=== PATIENT | male | born 1990 | race Caucasian/White ===

== ENCOUNTER 2021-02-25 22:46 | Emergency (ER) | payer OTHER, SELFPAY ==
[2021-02-25 23:22] LABS: COVID-19 Test Negative (Negative)
[2021-02-25 23:42] VITALS: BP 123/76; PULSE 60; RESP 16; TEMP 36.6; O2SAT 100; BMI 28.8
[2021-02-26 00:04] LABS: Strep A Nucleic Acid Negative (Negative)
--- NOTE | 2021-02-26 00:18 | ED.GENADULT ---
HPI - General Adult General Chief complaint: General Medical Stated complaint: congestion, throat pain Time Seen by Provider: 02/25/21 23:46 Source: patient Mode of arrival: ambulatory Limitations: language barrier History of Present Illness HPI narrative: 30-year-old male presents with upper respiratory symptoms for 3 days presents with right-sided ear pain, difficulty swelling because of sore throat and headache. Onset (ago): day(s) (3) Location: head Severity: mild Severity scale (1-10): 4 Quality: burning and aching Pain Consistency: constant Relieving factors: none Exacerbating factors: eating Associated symptoms: denies other symptoms Treatments prior to arrival: none Related Data Allergies Allergy/AdvReac Type Severity Reaction Status Date / Time No Known Allergies Allergy Verified 02/25/21 23:42 Review of Systems Review of Systems: Constitutional: No Fever, No Chills ENT/Mouth: Positive Ear Pain, No Hoarseness, positive sore throat Eyes: No Eye Pain, No Swelling, No Redness, No Foreign Body Cardiovascular: No Chest Pain, No SOB Respiratory: No Cough, No Dyspnea Gastrointestinal: No Nausea, No Vomiting, No Diarrhea, No abdominal Pain Genitourinary: No Dysuria, No Hematuria Musculoskeletal: positive joint pain, No Myalgias, No Joint Swelling Skin: No Skin lacerations, No rash Neuro: No Weakness, No Numbness, No Paresthesias, No Loss of Consciousness, No Dizziness, No Headache Psych: No Anxiety/Panic, No Depression Heme/Lymph: no easy bruising, no Lymphadenopathy Endocrine: No Polyuria, No Polydipsia Yes all other systems are reviewed and are negative [facility] Past Medical History Attestation statement: The following information was validated with the patient. Source: old records reviewed Medical History Asthma Social History Social History Advance Directives: No Physical Exam Vital Signs: Vital Signs: Last Vital Signs Temp 98 F 02/25/21 23:42 Pulse 60 02/25/21 23:42 Resp 16 02/25/21 23:42 BP 123/76 02/25/21 23:42 Pulse Ox 100 02/25/21 23:42 Body Mass Index 28.8 Appearance: Alert. Oriented X3. Mild distress. Eyes: Pupils equal, round and reactive to light. Sclera nonicteric. ENT: Pharynx and tonsils erythematous without swelling or purulent exudates. No tracheal stridor. Neck: Normal inspection. Neck supple. No cervical lymphadenopathy. CVS: Normal heart rate and rhythm. Pulses normal. Respiratory: No respiratory distress. Breath sounds normal. Abdomen: Soft and nontender. Skin: Skin warm and dry. Normal skin color. Normal skin turgor. Extremities: No lower extremity edema. Gait well balanced well coordinated. Neuro: No motor deficit. No sensory deficit. Cranial nerves 2 through 12 intact. Course Course Course Narrative: 30-year-old male presents with upper respiratory symptoms. Physical exam is unremarkable, Centor scale 1, COVID test is negative. strep test negative. Plan of care to discharge with supportive measures. Patient is afebrile and appears nontoxic. Vital signs are stable and within normal limits. Neurovascularly intact. Able to manage secretions and swallow without difficulty. Patient verbalized understanding of and agrees plan of care discharge home. emt paramedic utilized for all correspondence. Google translate utilized for discharge instructions. Medical Decision Making Differential Diagnosis Differential Diagnosis: Viral syndrome, pharyngitis, otitis media Medical Records Medical records reviewed: Yes I reviewed the patient's medical records. Lab Data Lab results reviewed: Yes I reviewed the patient's lab results. Labs: Lab Results 02/25/21 02/25/21 Range/Units 23:03 23:49 COVID-19 (LUCI) Negative (Negative) COVID-19 Clin Com See Note S. pyogenes GrpA SHAMIKA Negative (Negative) Discharge Plan Discharge Clinical Impression: Acute viral syndrome, Acute viral pharyngitis Patient Disposition: Home, Self-Care Instructions: Viral Syndrome (ED) Additional Instructions: Se le evalu? por s?ntomas de las v?as respiratorias superiores consistentes con brian enfermedad viral. Heller prueba de COVID y estreptococos son negativas. Utilice Tylenol y Motrin seg?n sea necesario para controlar el dolor. Beber mucho l?quido. Descansar. Jasbir por elegir margoth departamento de emergencias para heller evaluaci?n. Intza un seguimiento con heller m?dico de atenci?n primaria seg?n sea necesario. Regrese al departamento de emergencias por cualquier s?ntoma nuevo, preocupante o que empeore. You were evaluated for upper respiratory symptoms consistent with a viral illness. Your COVID and strep test are negative. Please use Tylenol and Motrin as needed for pain management. Drink plenty of fluids. Rest. Thank you for choosing this emergency department for evaluation. Please follow-up with primary care physician as needed. Return to the emergency department for any new, concerning, or worsening symptoms. Stand Alone Forms: Work/School Release
== END 2021-02-26 00:45 | disposition home or self-care (01) ==
PROVIDERS: Emergency Provider Internal Medicine
DX: J02.8 Acute pharyngitis due to other specified organisms (principal); B34.9 Viral infection, unspecified; J45.909 Unspecified asthma, uncomplicated; Z20.822 Contact with and (suspected) exposure to COVID-19
CPT/HCPCS: 36415; 87635; 87651; 99283

== ENCOUNTER 2021-05-17 08:16 | Outpatient (REF) | payer OTHER, SELFPAY ==
[2021-05-17 08:57] LABS: Estimated Average Glucose 111 mg/dL; Hemoglobin A1c % 5.5 %
[2021-05-17 09:14] LABS: Alanine Aminotransferase 46 U/L (0-40); Albumin Level 4.6 g/dL (3.5-5.0); Alkaline Phosphatase 65 U/L (39-117); Anion Gap 10 (12-20); Aspartate Amino Transferase 25 U/L (5-37); Bilirubin Total 0.7 mg/dL (0.0-1.0); Blood Urea Nitrogen 20 mg/dL (9-16); Carbon Dioxide 29 mmol/L (22-29); Chloride 108 mmol/L (96-108); Estimated Glomerular Filt Rate > 60; Glucose Fasting 103 mg/dL (60-99); Potassium 4.6 mmol/L (3.3-5.1); Sodium 142 mmol/L (135-145); Total Protein 7.5 g/dL (6.5-8.0)
[2021-05-17 09:25] LABS: Syphilis Screen Nonreactive (Nonreactive); TSH reflex Free T4 1.86 uIU/mL (0.32-4.0)
[2021-05-17 09:29] LABS: HBS Num1 30.31 mIU/mL (0-7.99); HBc Num1 0.32 S/CO (0.00-0.79); HIV AB/AG Nonreactive (Nonreactive); HIV Num 1 0.06 S/CO (0.00-0.99); Hepatitis B Core Antibody Nonreactive (Nonreactive); Hepatitis B Surface Antigen Negative (Negative); ~Hepatitis B Surface Antibody REACTIVE (Nonreactive)
[2021-05-17 09:32] LABS: ~HepC Num1 0.07 S/CO (0.00-0.79); ~Hepatitis C Antibody Nonreactive (Nonreactive)
[2021-05-24 17:47] LABS: Chlamydia Pneumoniae IgA <1:16 titer (<1:16); Chlamydia Pneumoniae IgM <1:10 titer (<1:10); Chlamydia Psittaci IgA <1:16 titer (<1:16); Chlamydia Psittaci IgG <1:64 titer (<1:64); Chlamydia Psittaci IgM <1:10 titer (<1:10); Chlamydia Trachomatis IgA <1:16 titer (<1:16); Chlamydia Trachomatis IgG <1:64 titer (<1:64); Chlamydia Trachomatis IgM <1:10 titer (<1:10)
== END 2021-05-17 08:17 | disposition home or self-care (01) ==
LOC: HO.LAB 08:16
PROVIDERS: PCP Physician Assistant; Visit Provider Physician Assistant
DX: Z01.84 Encounter for antibody response examination (principal); Z11.3 Encounter for screening for infections with a predominantly sexual mode of transmission; Z13.29 Encounter for screening for other suspected endocrine disorder; Z11.4 Encounter for screening for human immunodeficiency virus [HIV]
CPT/HCPCS: 36415; 80053; 83036; 84443; 86631; 86632; 86704; 86706; 86780; 86803; 87340; 87389

== ENCOUNTER 2021-06-09 13:49 | Outpatient (REF) | payer OTHER, SELFPAY ==
--- NOTE | ~2021-06-09 | US_ITS ---
EXAMINATION: US SCROTUM CLINICAL INFORMATION: Mobile cyst. Question epididymal cysts. COMPARISON: None TECHNIQUE: A sonogram of the scrotum was performed assessing kramer-scale appearance and color Doppler flow. Spectral Doppler analysis of the arterial and venous flow were performed in the testes bilaterally. FINDINGS: RIGHT: Right testicle measures 5 x 2.1 x 3.5 cm, volume 19.1 mL. No focal testicular parenchymal lesions are visualized. Spectral Doppler analysis of the arterial and venous flow is normal in the right testis. Right epididymal head is normal in size. An anechoic cyst measures 0.6. The tail is unremarkable. No right varicocele is seen. Trace right hydrocele. Right epididymal Doppler flow is normal. LEFT: Left testicle measures 4.3 x 2.4 x 3.6 cm, volume 18.9 mL. No focal testicular parenchymal lesions are visualized. Spectral Doppler analysis of the arterial and venous flow is normal in the left testis. Left epididymal head is normal in size. And anechoic cyst measures 0.5 cm. No left varicocele is seen. Very small left hydrocele. Left epididymal Doppler flow is normal. US/US scrotum IMPRESSION: 1. No intratesticular abnormality bilaterally. 2. Small epididymal cysts bilaterally. 3. Very small left and trace right hydroceles.
== END 2021-06-09 13:50 | disposition home or self-care (01) ==
LOC: HO.HMGCX 13:49
PROVIDERS: Visit Provider Physician Assistant
DX: N50.89 Other specified disorders of the male genital organs (principal)
CPT/HCPCS: 76870

== ENCOUNTER 2021-08-08 08:24 | Outpatient (REF) | payer OTHER, SELFPAY ==
--- NOTE | ~2021-08-08 | US_ITS ---
EXAMINATION: US ABDOMEN COMPLETE CLINICAL INFORMATION: Elevated LFTs. COMPARISON: None TECHNIQUE: Real-time imaging of the abdominal viscera. FINDINGS: PANCREAS: The head and the body of the pancreas is homogeneous in echotexture. The tail is obscured by overlying gas. ABDOMINAL AORTA: The proximal, mid, and distal segments are normal in caliber. INFERIOR VENA CAVA: Visualized portions are normal. LIVER: There is echogenic calcification with shadowing seen in the right hepatic lobe measuring 0.93 x 0.60 x 0.65 cm. There is diffuse echogenic liver with area of focal fatty infiltration adjacent to the gallbladder. The liver is normal in size. The liver contour is normal. Parenchymal echogenicity is normal. No focal hepatic lesion. There is no intrahepatic biliary duct dilatation seen. GALLBLADDER: The gallbladder wall thickness is 0.18. Normal. The gallbladder is physiologically distended without evidence of stones, sludge, polyps, wall thickening or pericholecystic fluid. COMMON BILE DUCT: Normal in caliber measuring 0.21 cm in diameter. RIGHT KIDNEY: Normal. No hydronephrosis. No renal calculi or focal parenchymal lesions. The kidney measures 9.7 cm in maximum dimension. LEFT KIDNEY: Normal. No hydronephrosis. No renal calculi or focal parenchymal lesions. The kidney measures 10.6 cm in maximum dimension. SPLEEN: Normal. The spleen measures 8.7 cm in maximum dimension. FREE FLUID: None. US/US abdomen complete IMPRESSION: Hepatic steatosis with areas of focal fatty sparing. There is a solitary calcification right hepatic lobe with acoustic shadowing. The tail of the pancreas is not seen. Rest of the abdominal ultrasound is unremarkable.
== END 2021-08-08 08:25 | disposition home or self-care (01) ==
LOC: HO.HMGCX 08:24
PROVIDERS: PCP Physician Assistant; Visit Provider Physician Assistant
DX: R74.8 Abnormal levels of other serum enzymes (principal)
CPT/HCPCS: 76700